=== PATIENT | male | born 1980 | race Caucasian/White ===

== ENCOUNTER 2016-09-08 09:27 | Emergency (ER) | payer MEDICAID, OTHER, SELFPAY ==
[~2016-09-08] VITALS: Ht 182.9 cm; Wt 73.5 kg
[~2016-09-08 09:27] MED LIST: NO MEDS; TYLE325T5 PO
[2016-09-08 09:28] VITALS: BP 123/73
[2016-09-08] MEDS ORDERED: ONDANSETRON 4 MG ORAL DISINTEGRATING TAB (S0181) PO ONE (10:45)
[2016-09-08] MEDS ORDERED: IBUPROFEN 800 MG TAB PO ONE (10:45)
[2016-09-08] MEDS ORDERED: ZOFR4TAB3 PO (10:49)
[2016-09-08] MEDS ORDERED: FLON1SPR (10:49)
== END 2016-09-08 11:00 | disposition home or self-care (01) ==
LOC: M ED 10:48
DX: J06.9 Acute upper respiratory infection, unspecified (principal); R11.0 Nausea; R19.7 Diarrhea, unspecified; F17.210 Nicotine dependence, cigarettes, uncomplicated

== ENCOUNTER 2016-12-08 09:49 | Emergency (ER) | payer OTHER, SELFPAY ==
[~2016-12-08] VITALS: Ht 182.9 cm; Wt 79.4 kg
[~2016-12-08 09:49] MED LIST changes: +FLON1SPR; +ZOFR4TAB3 PO
[2016-12-08] MEDS ORDERED: TETRACAINE 0.5% OPHTH SOLN 4ML OS ONE (11:00)
[2016-12-08] MEDS ORDERED: FLUORESCEIN OPHTH 1 MG STRIP OS ONE (11:00)
[2016-12-08 11:48] VITALS: BP 121/82
== END 2016-12-08 11:49 | disposition home or self-care (01) ==
LOC: M ED 10:59
DX: S05.02XA Injury of conjunctiva and corneal abrasion without foreign body, left eye, initial encounter (principal); W22.8XXA Striking against or struck by other objects, initial encounter; Y92.89 Other specified places as the place of occurrence of the external cause; Y93.H9 Activity, other involving exterior property and land maintenance, building and construction; Y99.8 Other external cause status; F17.200 Nicotine dependence, unspecified, uncomplicated

== ENCOUNTER 2017-01-17 09:00 | Emergency (ER) | payer OTHER ==
[~2017-01-17] VITALS: Ht 182.9 cm; Wt 68.3 kg
[2017-01-17] MEDS ORDERED: HYDROmorphone HCL 1 MG/ML SYRINGE (J1170) IM ONE (11:15)
--- NOTE | 2017-01-17 11:46 | REP ---
CT THORACIC SPINE WITHOUT CONTRAST: HISTORY: Fall. There is no acute fracture or subluxation. There is no disc bulge or herniation. The spinal canal and neural foramina are patent. The intervertebral discs are normal in height. Small ossified densities are present posterior to the spinous processes of the T3 and 5 vertebral bodies. These represent ligamentous calcification or possibly old avulsion fracture fragments. IMPRESSION: There is no acute fracture or dislocation. Signed by Raffy Cristobal MD 01/17/2017 11:50 A
--- NOTE | 2017-01-17 11:47 | REP ---
CT LUMBAR SPINE WITHOUT CONTRAST: HISTORY: Fall. There is no disc bulge or herniation at the L1-2 through L5-S1 levels. The nerves exit the neural foramina without compression. The intervertebral discs and vertebral bodies are normal in height. There is no fracture or subluxation. IMPRESSION: There is no acute fracture or subluxation. Signed by Raffy Cristobal MD 01/17/2017 11:51 A
--- NOTE | 2017-01-17 11:52 | REP ---
RIGHT RIB SERIES: Four views of the right ribs are performed and demonstrate no fracture or bone lesion. An accompanying view of the chest demonstrates no acute infiltrate or pneumothorax. Heart is normal in size. IMPRESSION: Negative right rib series. Signed by Macho Wolf MD 01/17/2017 05:36 P
[2017-01-17] MEDS ORDERED: NAPR500T PO (12:05)
[2017-01-17] MEDS ORDERED: CYCL10TA PO (12:05)
[2017-01-17] MEDS ORDERED: HYDR-3713 PO (12:05)
[2017-01-17 12:13] VITALS: BP 143/86
== END 2017-01-17 12:14 | disposition home or self-care (01) ==
LOC: M ED 09:00
DX: S20.211A Contusion of right front wall of thorax, initial encounter (principal); S30.0XXA Contusion of lower back and pelvis, initial encounter; W11.XXXA Fall on and from ladder, initial encounter; Y92.89 Other specified places as the place of occurrence of the external cause; Y93.89 Activity, other specified; Y99.8 Other external cause status; M54.9 Dorsalgia, unspecified; G89.29 Other chronic pain; F17.210 Nicotine dependence, cigarettes, uncomplicated

== ENCOUNTER 2017-03-01 07:10 | Emergency (ER) | payer OTHER ==
[~2017-03-01] VITALS: Ht 182.9 cm; Wt 68.1 kg
[~2017-03-01 07:10] MED LIST changes: +CYCL10TA PO; +HYDR-3713 PO; +NAPR500T PO
[2017-03-01] MEDS ORDERED: KETOROLAC 30 MG/ML VIAL (J1885) IV ONE (07:45)
[2017-03-01] MEDS ORDERED: METOCLOPRAMIDE INJ 10MG/2ML VIAL (J2765) IV ONE (07:45)
[2017-03-01] MEDS ORDERED: NS 1,000 ML IV ONE (07:45)
--- NOTE | 2017-03-01 08:57 | REP ---
Abdomen series: Three views. History: Abdominal pain. Comparison films are from January 17, 2017. Findings: Upright chest radiograph is normal. There is no evidence of infiltrate or free subdiaphragmatic air. Heart size is normal. Supine and erect views of the abdomen show a normal bowel gas pattern with air and stool in a nondistended colon. There is a phlebolith in the left pelvis. Psoas margins and flank stripes are intact. Impression: Negative abdominal series. Signed by Piyush Pop MD 03/01/2017 01:57 P
[2017-03-01] MEDS ORDERED: ZOFR4TAB3 PO (09:46)
[2017-03-01 09:52] VITALS: BP 131/66
== END 2017-03-01 09:58 | disposition home or self-care (01) ==
LOC: M ED 07:10
DX: R11.10 Vomiting, unspecified (principal); R19.7 Diarrhea, unspecified; F17.210 Nicotine dependence, cigarettes, uncomplicated
CPT/HCPCS: 74022; 96361; 96374; 96375; 99283; J1885; J2765

== ENCOUNTER 2017-04-30 10:50 | Emergency (ER) | payer OTHER ==
[~2017-04-30] VITALS: Ht 182.9 cm; Wt 69.5 kg
--- NOTE | 2017-04-30 13:41 | REP ---
SCROTAL ULTRASOUND: Real-time sonographic evaluation of the scrotum and contents performed. Testicles are normal in size and echotexture, right testicle measuring 4.4 x 2.6 x 3.4 cm and left testicle 4.5 x 2.2 x 3.3 cm. There is no testicular mass or torsion. Blood flow is seen in each testicle with duplex Doppler evaluation, RI right testicle is 0.55 and left testicle 0.57. Small varicocele is seen posteriorly on the left with venous structure 3 mm in diameter. IMPRESSION: No mass or torsion. Small left varicocele. Signed by Macho Wolf MD 04/30/2017 04:33 P
[2017-04-30] MEDS ORDERED: NORCOTAB PO (13:59)
--- NOTE | 2017-04-30 14:05 | REP ---
ULTRASOUND INGUINAL REGIONS: Real-time sonographic evaluation of the inguinal regions performed at rest and with Valsalva maneuver to evaluate for possible inguinal hernia. No inguinal hernia is seen bilaterally. No cystic or solid mass is seen. No fluid collection is seen. IMPRESSION: No sonographic evidence of inguinal hernia bilaterally. Signed by Macho Wolf MD 04/30/2017 04:34 P
[2017-04-30] MEDS ORDERED: NORCO, ANEXSIA 5/325MG TABLET (HYDROcodone/ACETAMINOPHEN) PO ONE (14:15)
[2017-04-30 14:20] VITALS: BP 136/88
== END 2017-04-30 14:23 | disposition home or self-care (01) ==
LOC: M ED 10:50
DX: N50.811 Right testicular pain (principal); I86.1 Scrotal varices; F17.210 Nicotine dependence, cigarettes, uncomplicated

== ENCOUNTER 2017-06-18 19:06 | Emergency (ER) | payer OTHER ==
[~2017-06-18] VITALS: Ht 182.9 cm; Wt 78.2 kg
[~2017-06-18 19:06] MED LIST changes: +NORCOTAB PO
[2017-06-18] MEDS ORDERED: AUGMENTIN 875 MG TAB PO ONE ×3 (22:00→22:30)
[2017-06-18] MEDS ORDERED: LIDOCAINE 2% MDV 20 ML VIAL SC ONE ×2 (22:00→22:15)
[2017-06-18] MEDS ORDERED: LIDOCAINE 2% MDV 20 ML VIAL As Ordered ONE (22:15)
[2017-06-18] MEDS ORDERED: ACETAMINOPHEN 325 MG TAB PO ONE ×2 (22:15→22:30)
[2017-06-18] MEDS ORDERED: RABIES VACCINE HUMAN 2.5 INTERNATIONAL UNITS/ML VIAL (90675) IM ONE ×2 (22:15→22:30)
[2017-06-18] MEDS ORDERED: RABIES IMMUNE GLOBULIN 1500 INTERNATIONAL UNITS/10 ML VIAL (90375) IM ONE (22:15)
[2017-06-18] MEDS ORDERED: LIDOCAINE 2% MDV 20 ML VIAL IM ONE (22:30)
[2017-06-18] MEDS ORDERED: RABIES IMMUNE GLOBULIN 300 INTERNATIONAL UNITS/2 ML VIAL (90375) IM ONE (22:45)
[2017-06-18] MEDS ORDERED: AUGM875T28 PO (23:04)
[2017-06-18 23:29] VITALS: BP 112/68
== END 2017-06-18 23:54 | disposition home or self-care (01) ==
LOC: M ED 19:06
DX: S01.511A Laceration without foreign body of lip, initial encounter (principal); S01.551A Open bite of lip, initial encounter; W54.0XXA Bitten by dog, initial encounter; Y92.833 Campsite as the place of occurrence of the external cause; Y93.89 Activity, other specified; Y99.8 Other external cause status; R56.9 Unspecified convulsions; F17.210 Nicotine dependence, cigarettes, uncomplicated; Z87.442 Personal history of urinary calculi

== ENCOUNTER 2017-06-21 08:52 | Emergency (ER) | payer OTHER ==
[~2017-06-21] VITALS: Ht 182.9 cm; Wt 77.3 kg
[~2017-06-21 08:52] MED LIST changes: +AUGM875T28 PO
[2017-06-21 08:53] VITALS: BP 116/70
[2017-06-21] MEDS ORDERED: RABIES VACCINE HUMAN 2.5 INTERNATIONAL UNITS/ML VIAL (90675) IM ONE (09:45)
== END 2017-06-21 10:43 | disposition home or self-care (01) ==
LOC: M ED 08:52
DX: Z20.3 Contact with and (suspected) exposure to rabies (principal); F17.210 Nicotine dependence, cigarettes, uncomplicated; Z79.2 Long term (current) use of antibiotics

== ENCOUNTER 2017-06-25 19:36 | Emergency (ER) | payer OTHER ==
[~2017-06-25] VITALS: Ht 182.9 cm; Wt 77.3 kg
[2017-06-25 19:41] VITALS: BP 134/74
[2017-06-25] MEDS ORDERED: RABIES VACCINE HUMAN 2.5 INTERNATIONAL UNITS/ML VIAL (90675) IM ONE (20:15)
== END 2017-06-25 21:06 | disposition home or self-care (01) ==
LOC: M ED 19:36
DX: Z20.3 Contact with and (suspected) exposure to rabies (principal); F17.210 Nicotine dependence, cigarettes, uncomplicated; Z79.2 Long term (current) use of antibiotics

== ENCOUNTER 2017-07-29 13:43 | Emergency (ER) | payer OTHER | END 2017-07-29 14:59 | disposition left against medical advice (07) | LOC: M ED 13:43 | DX: Z53.21 Procedure and treatment not carried out due to patient leaving prior to being seen by health care provider (principal) ==

== ENCOUNTER 2017-08-09 12:19 | Emergency (ER) | payer OTHER | END 2017-08-09 16:00 | disposition left against medical advice (07) | LOC: M ED 12:19 | DX: Z53.21 Procedure and treatment not carried out due to patient leaving prior to being seen by health care provider (principal) ==

== ENCOUNTER 2017-08-15 08:31 | Emergency (ER) | payer OTHER ==
[2017-08-15 10:31] LABS: INFLUENZA A AMPLIFICATION NEGATIVE (NEGATIVE); INFLUENZA B AMPLIFICATION NEGATIVE (NEGATIVE)
== END 2017-08-15 10:48 | disposition home or self-care (01) ==
LOC: M ED 08:31
DX: J40 Bronchitis, not specified as acute or chronic (principal); F17.210 Nicotine dependence, cigarettes, uncomplicated; Z86.69 Personal history of other diseases of the nervous system and sense organs
CPT/HCPCS: 71046

== ENCOUNTER 2017-09-26 12:46 | Emergency (ER) | payer OTHER | END 2017-09-26 13:51 | disposition home or self-care (01) | LOC: M ED 12:46 | DX: J32.9 Chronic sinusitis, unspecified (principal); F17.210 Nicotine dependence, cigarettes, uncomplicated | CPT/HCPCS: 99282 ==

== ENCOUNTER 2017-11-29 09:13 | Emergency (ER) | payer SELFPAY, OTHER ==
[2017-11-29 10:17] LABS: APPEARANCE, URINE CLEAR (CLEAR); BACTERIA, URINE AUTO NEGATIVE (NEGATIVE); BILIRUBIN, URINE AUTO NEGATIVE (NEGATIVE); BLOOD, URINE BLOOD NEGATIVE (NEGATIVE); COLOR, URINE YELLOW (YELLOW); GLUCOSE, URINE (UA) AUTO NEGATIVE (NEGATIVE); KETONE, URINE AUTO NEGATIVE (NEGATIVE); LEUKOCYTE ESTERASE, URINE AUTO NEGATIVE (NEGATIVE); MUCUS, URINE SMALL (NEGATIVE); NITRITE, URINE AUTO NEGATIVE (NEGATIVE); PROTEIN, URINE AUTO NEGATIVE (NEGATIVE); RBC, URINE AUTO 1 /HPF (0-3); SPECIFIC GRAVITY URINE AUTO 1.021 (1.002-1.035); SQUAMOUS EPITHELIAL CELL UR AU 0 /HPF (0-6); UROBILINOGEN, URINE AUTO 0.2 mg/dL (0.0-2.0); WBC, URINE AUTO 0 /HPF (0-3)
== END 2017-11-29 11:30 | disposition left against medical advice (07) ==
LOC: M ED 09:13
DX: S39.92XA Unspecified injury of lower back, initial encounter (principal); Z53.21 Procedure and treatment not carried out due to patient leaving prior to being seen by health care provider; V29.9XXA Motorcycle rider (driver) (passenger) injured in unspecified traffic accident, initial encounter; Y92.9 Unspecified place or not applicable; Y93.9 Activity, unspecified; Y99.9 Unspecified external cause status; Z72.0 Tobacco use
CPT/HCPCS: 81001

== ENCOUNTER 2018-01-28 12:38 | Emergency (ER) | payer SELFPAY, OTHER ==
[2018-01-28 16:11] LABS: BASO # 0.1 10^3/uL (0.0-0.2); BASO % 0.8 % (0.0-1.0); EOS # 0.1 10^3/uL (0.0-0.50); EOS % 1.8 % (0.0-3.0); HEMATOCRIT 43.3 % (42.0-52.0); HEMOGLOBIN 14.9 g/dl (13.5-17.5); IMMATURE GRANULOCYTE % 0.6 % (0-3.0); LYMPH % 28.5 % (24.0-44.0); MEAN CORPUSCULAR HGB CONC 34.4 g/dl (32.0-36.5); MEAN CORPUSCULAR VOLUME 92.9 fl (80.0-96.0); MONO # 0.6 10^3/uL (0.0-0.8); MONO % 7.9 % (0.0-5.0); NEUTROPHILS # 4.3 10^3/uL (1.8-7.7); NEUTROPHILS % 60.4 % (36.0-66.0); PLATELET COUNT, AUTOMATED 218 10^3/uL (150-450); RED BLOOD COUNT 4.66 10^6/uL (4.30-6.10); RED CELL DISTRIBUTION WIDTH 12.2 % (11.5-14.5); WHITE BLOOD COUNT 7.2 10^3/uL (4.0-10.0)
[2018-01-28] MEDS: ONDANSETRON 4MG/2ML VIAL (J2405) IV (16:30)
[2018-01-28] MEDS: NS 1,000 ML IV (16:30)
[2018-01-28] MEDS: MORPHINE 4 MG/ML 1ML VIAL/SYRINGE (J2270) IV ×2 (16:31→17:30)
[2018-01-28 16:35] LABS: ALBUMIN 4.1 GM/DL (3.2-5.2); ALBUMIN/GLOBULIN RATIO 1.21 (1.00-1.93); ALKALINE PHOSPHATASE 90 U/L (45-117); ALT/SGPT 29 U/L (12-78); ANION GAP 4 MEQ/L (8-16); AST/SGOT 17 U/L (7-37); BILIRUBIN,TOTAL 0.5 MG/DL (0.2-1.0); BLOOD UREA NITROGEN 9 MG/DL (7-18); CALCIUM LEVEL 8.9 MG/DL (8.5-10.1); CARBON DIOXIDE LEVEL 28 MEQ/L (21-32); CHLORIDE LEVEL 109 MEQ/L (98-107); GLOMERULAR FILTRATION RATE > 60.0 (>60); GLUCOSE, FASTING 95 MG/DL (70-100); LIPASE 131 U/L (73-393); POTASSIUM SERUM 3.8 MEQ/L (3.5-5.1); SODIUM LEVEL 141 MEQ/L (136-145); TOTAL PROTEIN 7.5 GM/DL (6.4-8.2)
[2018-01-28 16:35] LABS: LACTIC ACID SEPSIS PROTOCOL 0.9 MMOL/L (0.4-2.0)
[2018-01-28] MEDS ORDERED: ISOVUE-370 76% 100ML VIAL (Q9967) As Ordered (16:55)
[2018-01-28 19:19] LABS: KETONE, URINE AUTO RFX NEGATIVE (NEGATIVE); LEUKOCYTE ESTERASE UR AUTO RFX NEGATIVE (NEGATIVE); NITRITE, URINE AUTO RFX NEGATIVE (NEGATIVE); RBC, URINE AUTO RFX 1 /HPF (0-3); SPECIFIC GRAVITY UR AUTO RFX 1.048 (1.002-1.035); SQUAM EPITHELIAL CELL UR AURFX 0 /HPF (0-6); WBC, URINE AUTO RFX 0 /HPF (0-3)
== END 2018-01-28 19:54 | disposition home or self-care (01) ==
LOC: M ED 12:38
DX: R10.84 Generalized abdominal pain (principal); R19.7 Diarrhea, unspecified; R11.2 Nausea with vomiting, unspecified; H53.8 Other visual disturbances; R00.0 Tachycardia, unspecified; Z87.442 Personal history of urinary calculi; F17.210 Nicotine dependence, cigarettes, uncomplicated
CPT/HCPCS: J2270

== ENCOUNTER 2018-06-03 12:12 | Emergency (ER) | payer SELFPAY | END 2018-06-03 14:40 | disposition left against medical advice (07) | LOC: M ED 12:12 | DX: Z53.29 Procedure and treatment not carried out because of patient's decision for other reasons (principal) ==

== ENCOUNTER 2018-09-17 07:35 | Emergency (ER) | payer SELFPAY ==
[~2018-09-17] VITALS: Ht 182.9 cm; Wt 72.4 kg
[~2018-09-17 07:35] MED LIST changes: +BENT10CA PO; +IBUP-1022 PO; +MUCI600T37 PO; +NAPR-50 PO; -NAPR500T PO; +SUDA1TAB3 PO; +TYLE500T78 PO; +ZITHTAB PO; +ZOFR4TAB14 PO; -ZOFR4TAB3 PO
[2018-09-17] MEDS ORDERED: IBUP1TAB7 PO (07:46)
[2018-09-17] MEDS ORDERED: KETOROLAC 60 MG/2 ML VIAL (J1885) IM ONE (08:15)
[2018-09-17] MEDS ORDERED: METHOCARBAMOL 500 MG TAB PO ONE (08:15)
[2018-09-17] MEDS ORDERED: ROBA500T PO (08:43)
[2018-09-17] MEDS ORDERED: NAPR-50 PO (08:43)
[2018-09-17 08:50] VITALS: BP 139/79
--- NOTE | 2018-09-17 09:00 | REP ---
LUMBAR SPINE, FIVE VIEWS: HISTORY: Trauma. COMPARISON: 07/26/2013 There is no acute fracture or subluxation. The intervertebral discs are normal in height. The facet joints are normal in appearance. IMPRESSION:There is no acute fracture or subluxation. Electronically Signed by Raffy Cristobal MD 09/17/2018 09:52 A
== END 2018-09-17 08:59 | disposition home or self-care (01) ==
LOC: M ED 07:35
DX: S33.9XXA Sprain of unspecified parts of lumbar spine and pelvis, initial encounter (principal); W00.0XXA Fall on same level due to ice and snow, initial encounter; Y92.481 Parking lot as the place of occurrence of the external cause; M62.830 Muscle spasm of back; F17.210 Nicotine dependence, cigarettes, uncomplicated
CPT/HCPCS: 72110; 96372; 99283; J1885

== ENCOUNTER 2018-12-20 11:27 | Emergency (ER) | payer OTHER, SELFPAY ==
[~2018-12-20] VITALS: Ht 182.9 cm; Wt 77.3 kg
[2018-12-20 11:27] VITALS: BP 131/64
[~2018-12-20 11:27] MED LIST changes: +HYDR-3715 PO; +IBUP1TAB7 PO; -NAPR-50 PO; +NAPR-837 PO; -NORCOTAB PO; +ROBA500T PO
--- NOTE | 2018-12-20 13:25 | REP ---
RIGHT 2ND DIGIT, FOUR VIEWS Four views right 2nd digit performed. There is no evidence of acute fracture, dislocation, or intrinsic bone disease. IMPRESSION: No fracture or dislocation. Electronically Signed by Macho Wolf MD 12/20/2018 07:28 P
== END 2018-12-20 12:36 | disposition home or self-care (01) ==
LOC: M ED 11:27
DX: S67.190A Crushing injury of right index finger, initial encounter (principal); S67.192A Crushing injury of right middle finger, initial encounter; W20.8XXA Other cause of strike by thrown, projected or falling object, initial encounter; Y92.89 Other specified places as the place of occurrence of the external cause; Y99.0 Civilian activity done for income or pay; F17.200 Nicotine dependence, unspecified, uncomplicated

== ENCOUNTER 2019-03-21 21:01 | Emergency (ER) | payer OTHER, SELFPAY ==
[~2019-03-21] VITALS: Ht 182.9 cm; Wt 80.9 kg
[2019-03-21] MEDS ORDERED: LIDOCAINE W/EPINEPHRINE 1% 20ML VIAL SC ONE (21:45)
[2019-03-21] MEDS ORDERED: NORCO, ANEXSIA 5/325MG TABLET (HYDROcodone/ACETAMINOPHEN) PO ONE (21:45)
[2019-03-21 22:04] VITALS: BP 135/82
[2019-03-21] MEDS ORDERED: CEPHALEXIN 500 MG CAP PO ONE (22:45)
[2019-03-21] MEDS ORDERED: KEFL500C17 PO (22:46)
[2019-03-21] MEDS ORDERED: NORC1TAB7 PO (22:46)
--- NOTE | 2019-03-22 09:34 | REP ---
Pain after trauma. COMPARISON: 07/14/2010 Artifact is seen over the soft tissues of the hand dorsally. This is to such a degree that a soft tissue foreign body cannot be ruled out. There is no fracture. IMPRESSION: Significant artifact, as described above. The artifact should be removed and a repeat examination should be obtained. Electronically Signed by Branden Hopper DO 03/22/2019 09:48 A
== END 2019-03-21 22:57 | disposition home or self-care (01) ==
LOC: M ED 21:01
DX: S61.210A Laceration without foreign body of right index finger without damage to nail, initial encounter (principal); S61.212A Laceration without foreign body of right middle finger without damage to nail, initial encounter; W22.09XA Striking against other stationary object, initial encounter; W25.XXXA Contact with sharp glass, initial encounter; Y92.098 Other place in other non-institutional residence as the place of occurrence of the external cause; F17.200 Nicotine dependence, unspecified, uncomplicated

== ENCOUNTER 2019-03-31 09:47 | Emergency (ER) | payer SELFPAY ==
[~2019-03-31] VITALS: Ht 182.9 cm; Wt 71.6 kg
[~2019-03-31 09:47] MED LIST changes: +KEFL500C17 PO; +NORC1TAB7 PO
[2019-03-31 09:48] VITALS: BP 118/77
[2019-03-31 11:55] LABS: HEMOGLOBIN 15.5 g/dl (13.5-17.5); MEAN CORPUSCULAR HGB CONC 33.7 g/dl (32.0-36.5); PLATELET COUNT, AUTOMATED 244 10^3/uL (150-450); RED BLOOD COUNT 4.84 10^6/uL (4.30-6.10); WHITE BLOOD COUNT 9.5 10^3/uL (4.0-10.0)
[2019-03-31 12:46] LABS: ERYTHROCYTE SEDIMENTATION RATE 2 mm/hr (0-15)
[2019-03-31] MEDS ORDERED: KEFL500C17 PO (13:30)
== END 2019-03-31 13:20 | disposition left against medical advice (07) ==
LOC: M ED 09:47
DX: Z48.02 Encounter for removal of sutures (principal); F17.210 Nicotine dependence, cigarettes, uncomplicated

== ENCOUNTER 2021-02-24 06:51 | Emergency (ER) | payer SELFPAY ==
[~2021-02-24] VITALS: Ht 182.9 cm; Wt 69.6 kg
[2021-02-24 06:51] VITALS: BP 139/67
[~2021-02-24 06:51] MED LIST changes: +CYCL-707 PO; -CYCL10TA PO
--- NOTE | 2021-02-24 09:16 | REP ---
INDICATION: cough COMPARISON: 01/17/2017 TECHNIQUE: PA and lateral. FINDINGS: The mediastinum and cardiac silhouette are normal. The lung nevarez are clear and without acute consolidation, effusion, or pneumothorax. The skeletal structures are intact and normal. IMPRESSION: No acute cardiopulmonary process. <Electronically signed by Amrit Alvarado > 02/24/21 0912
== END 2021-02-24 10:01 | disposition left against medical advice (07) ==
LOC: M ED 06:51
DX: R51.9 Headache, unspecified (principal); R07.1 Chest pain on breathing; R05 Cough; J02.9 Acute pharyngitis, unspecified; M79.10 Myalgia, unspecified site; R56.9 Unspecified convulsions; M54.9 Dorsalgia, unspecified; Z87.442 Personal history of urinary calculi; F17.210 Nicotine dependence, cigarettes, uncomplicated

== ENCOUNTER 2021-04-12 13:52 | Emergency (ER) | payer SELFPAY ==
[~2021-04-12] VITALS: Ht 182.9 cm; Wt 70.9 kg
[2021-04-12 13:53] VITALS: BP 125/67
== END 2021-04-12 14:20 | disposition left against medical advice (07) ==
LOC: M ED 13:52
DX: Z53.21 Procedure and treatment not carried out due to patient leaving prior to being seen by health care provider (principal)

== ENCOUNTER 2021-05-24 08:32 | Emergency (ER) | payer SELFPAY ==
[~2021-05-24] VITALS: Ht 182.9 cm; Wt 77.3 kg
--- OUTSIDE RECORDS SUMMARY | 2021-05-24 08:38 | CCD ---
Author Author [facility] Organization [facility] Address Unknown Phone Unavailable Support Name Relationship Address Phone HUMBERTO FLORES Next Of Kin [address] [place] [address] [place] Next Of Kin [address] [place] [address] A Z AUTOMOTIVE Next Of Kin [address] [place] [address] NONE, PT PER Next Of Kin - - -, - - - Ondina PACHECO Next Of Kin [address] [place] [address] Unavailable ESEQUIEL THOMAS Next Of Kin [address] [place] [address] PICK GO Next Of Kin [address] [place] [address] UN Next Of Kin Unknown Unavailable Rocco THOMAS Next Of Kin [address] [place] [address] [place] [employer] Next Of Kin [address] [place] [address] [place] [address] Unavailable DARLINE THOMAS Next Of Kin [address] [place] [id number] [place] [address] Unavailable NILDA BREAUX Next Of Kin [address] [place] [address] WINSTON ARCEO Next Of Kin [address] [place] [address] TRACY Next Of Kin [address] [place] [address] LILA THOMAS Next Of Kin [address] [place] [address] CHERRY THOMAS Next Of Kin [address] [place] [address] UE Next Of Kin Unknown Unavailable ST Next Of Kin Unknown Unavailable HUMBERTO THOMAS Next Of Kin [address] [place] [address] [place] [address] Unavailable DAYSI BURKS Next Of Kin [address] [place] [phone] Re-disclosure Warning The records that you are about to access may contain information from federally-assisted alcohol or drug abuse programs. If such information is present, then the following federally mandated warning applies: This information has been disclosed to you from records protected by federal confidentiality rules (42 CFR part 2). The federal rules prohibit you from making any further disclosure of this information unless further disclosure is expressly permitted by the written consent of the person to whom it pertains or as otherwise permitted by 42 CFR part 2. A general authorization for the release of medical or other information is NOT sufficient for this purpose. The Federal rules restrict any use of the information to criminally investigate or prosecute any alcohol or drug abuse patient.The records that you are about to access may contain highly sensitive health information, the redisclosure of which is protected by Article 27-F of the [facility] Public Health law. If you continue you may have access to information: Regarding HIV / AIDS; Provided by facilities licensed or operated by the [facility] Office of Mental Health; or Provided by the [facility] Office for People With Developmental Disabilities. If such information is present, then the following [facility] mandated warning applies: This information has been disclosed to you from confidential records which are protected by state law. State law prohibits you from making any further disclosure of this information without the specific written consent of the person to whom it pertains, or as otherwise permitted by law. Any unauthorized further disclosure in violation of state law may result in a fine or intermediate sentence or both. A general authorization for the release of medical or other information is NOT sufficient authorization for further disc losure. Medications No Information Insurance Providers Payer name Policy type / Coverage type Policy ID Covered democrat ID Covered democrat's relationship to ware Policy Ware Plan Information SELF PAY ONLY [id number] SP [id number] [facility] RES. O [id number] S [id number] [facility] O [id number] S 1 [id number] O UNAVAILABLE UNAVAILA BLE [facility] [id number] SP [id number] [facility] [id number] SP [id number] [facility] O [id number] S [id number] UNHC COMMUNITY PLAN MCDO [id number] SP [id number] SELF PAY ONLY [id number] SP [id number] [facility] [id number] SP [id number] UNHC COMMUNITY PLAN MCDHMO [id number] SP [id number] SELF PAY ONLY SP1 SP [id number] UNHC COMMUNITY PLAN MCDO [id number] SP [id number] UNHC COMMUNITY PLAN MCDO [id number] SP [id number] MEDICAID [id number] SP [id number] SELF PAY UNAVAILABLE SP UNAVAILA BLE [place] [employer] [id number] SP [id number] OTHER WORKERS COMPENSATION [id number] SP [id number] [facility] DEP [id number] SP [id number] [employer] INSURANCE [id number] FA [id number] OTHER [place] [id number] [place] [id number] Problems, Conditions, and Diagnoses No Information Surgeries/Procedures No Information Results ID Date Data Source [id number] 02/24/2021 08:33:00 AM EDT [facility] Name Value Range Interpretation Code Description Data Yanni rce(s) Supporting Document(s) SARS COVID ANTIGEN NEGATIVE [facility] This lab was ordered by BACILIO hugo nd reported by [facility]. Procedure Social History No Information
--- OUTSIDE RECORDS SUMMARY | 2021-05-24 09:46 | CCD ---
Author Author [facility] Organization [facility] Address Unknown Phone Unavailable Support Name Relationship Address Phone HUMBERTO FLORES Next Of Kin [address] [place] [address] [place] Next Of Kin [address] [place] [address] A Z AUTOMOTIVE Next Of Kin [address] [place] [address] NONE, PT PER Next Of Kin - - -, - - - Ondina PACHECO Next Of Kin [address] [place] [address] Unavailable ESEQUIEL THOMAS Next Of Kin [address] [place] [address] PICK GO Next Of Kin [address] [place] [address] UN Next Of Kin Unknown Unavailable Rocco THOMAS Next Of Kin [address] [place] [address] [place] [employer] Next Of Kin [address] [place] [address] [place] [address] Unavailable DARLINE THOMAS Next Of Kin [address] [place] [phone] LUCY [place] [address] Unavailable NILDA BREAUX Next Of Kin [address] [place] [address] WINSTON ARCEO Next Of Kin [address] [address] TRACY Next Of Kin [address] [place] [address] LILA THOMAS Next Of Kin [address] [place] [address] CHERRY THOMAS Next Of Kin [address] [place] [address] UE Next Of Kin Unknown Unavailable ST Next Of Kin Unknown Unavailable HUMBERTO THOMAS Next Of Kin [address] [place] [address] [place] [address] Unavailable DAYSI BURKS Next Of Kin [address] [place] [phone] Re-disclosure Warning The records that you are [...] is protected by Article 27-F of the [facility] Public Health law. If you continue you may have access to information: Regarding HIV / AIDS; Provided by facilities licensed or operated by the [facility] Office of Mental Health; or Provided by the [facility] Office for People With Developmental Disabilities. If such information is present, then the following [facility] mandated warning applies: This information has been [...] law may result in a fine or custodial sentence or both. A general authorization for the release of medical or other information is NOT sufficient authorization for further disc losure. Medications No Information Insurance Providers Payer name Policy type / Coverage type Policy ID Covered libertarian ID Covered libertarian's relationship to ware Policy Ware Plan Information SELF PAY ONLY [id number] SP [id number] [facility] RES. O [id number] S [id number] [facility] O [id number] S [id number] O UNAVAILABLE UNAVAILA BLE [facility] [id number] SP [id number] [facility] [id number] SP [id number] [facility] O [id number] S [id number] UNHC COMMUNITY PLAN MCDO [id number] SP [id number] SELF PAY ONLY [id number] SP [id number] [facility] PU[facility] HLTH [id number] SP [id number] UNHC COMMUNITY PLAN MCDHMO [id number] SP [id number] SELF PAY ONLY SP1 SP SP1 [employer] COMMUNITY PLAN MCDO [id number] SP [id number] UNHC COMMUNITY PLAN MCDO [id number] SP [id number] MEDICAID [id number] SP [id number] SELF PAY UNAVAILABLE SP UNAVAILA BLE [place] [employer] [id number] SP [id number] OTHER WORKERS COMPENSATION [id number] SP [id number] [facility] COPY READER DEP [id number] SP [id number] GROUP [employer]URANCE [id number] FA [id number] OTHER NO FAULT [id number] SP [id number] Problems, Conditions, and Diagnoses No Information Surgeries/Procedures No Information Results ID Date Data Source [id number] 02/24/2021 08:33:00 AM EDT [facility] Name Value Range Interpretation Code Description Data Yanni rce(s) Supporting Document(s) SARS COVID ANTIGEN NEGATIVE [facility] This lab was ordered by BACILIO hugo nd reported by [facility]. Procedure Social History No Information
--- NOTE | 2021-05-24 10:38 | REP ---
INDICATION: covid +, SOB COMPARISON: 02/24/2021 TECHNIQUE: PA and lateral. FINDINGS: The mediastinum and cardiac silhouette are normal. The lung nevarez are clear and without acute consolidation, effusion, or pneumothorax. The skeletal structures are intact and normal. IMPRESSION: No acute cardiopulmonary process. <Electronically signed by Amrit Alvarado > 05/24/21 1036
[2021-05-24 11:10] VITALS: BP 127/78; O2SAT 98
== END 2021-05-24 11:20 | disposition home or self-care (01) ==
LOC: M ED 08:32
DX: U07.1 COVID-19 (principal); F17.200 Nicotine dependence, unspecified, uncomplicated

== ENCOUNTER 2022-05-28 08:07 | Emergency (ER) | payer OTHER, SELFPAY ==
[~2022-05-28] VITALS: Ht 182.9 cm; Wt 69.6 kg
[2022-05-28 08:08] VITALS: BP 123/63
== END 2022-05-28 12:24 | disposition left against medical advice (07) ==
LOC: M ED 08:07
DX: Z53.21 Procedure and treatment not carried out due to patient leaving prior to being seen by health care provider (principal)